=== PATIENT | female | born 1975 | race Caucasian/White ===

== ENCOUNTER → 2016-08-14 | Outpatient (CLI) | payer MEDICARE, OTHER ==
[~2016-08-14] VITALS: Ht 165.1 cm; Wt 57.2 kg
[~2016-08-14] MED LIST: CARI350 PO; CEPH500 PO; COLL30OI TP; DOXY100C PO; NITR100 PO; OXYB5 PO; PERCT10 PO
[2016-08-14 15:03] VITALS: BP 129/78
== END | disposition home or self-care (01) ==
LOC: HBOWC 13:07
PROVIDERS: ATTEND Emergency Medicine
DX: L89.612 Pressure ulcer of right heel, stage 2 (principal); L89.892 Pressure ulcer of other site, stage 2; G82.20 Paraplegia, unspecified
CPT/HCPCS: 97597

== ENCOUNTER → 2016-08-22 | Outpatient (CLI) | payer MEDICARE, OTHER ==
[~2016-08-22] MED LIST changes: -CEPH500 PO; -DOXY100C PO
== END | disposition home or self-care (01) ==
LOC: RADPV 13:26
PROVIDERS: ATTEND Emergency Medicine
DX: L89.619 Pressure ulcer of right heel, unspecified stage (principal); M85.88 Other specified disorders of bone density and structure, other site; Z87.81 Personal history of (healed) traumatic fracture

== ENCOUNTER → 2016-08-22 | Outpatient (CLI) | payer MEDICARE, OTHER ==
[2016-08-22 14:13] VITALS: BP 129/86
== END | disposition home or self-care (01) ==
LOC: HBOWC 13:32
PROVIDERS: ATTEND Emergency Medicine Undersea and Hyperbaric Medicine
DX: L89.92 Pressure ulcer of unspecified site, stage 2 (principal); L89.612 Pressure ulcer of right heel, stage 2; G82.20 Paraplegia, unspecified
CPT/HCPCS: 97597

== ENCOUNTER → 2016-08-22 | Outpatient (CLI) | payer MEDICARE, OTHER | END | disposition home or self-care (01) | LOC: RADPV 13:23 | PROVIDERS: ATTEND Physical Medicine & Rehabilitation | DX: S82.391D Other fracture of lower end of right tibia, subsequent encounter for closed fracture with routine healing (principal); S82.831D Other fracture of upper and lower end of right fibula, subsequent encounter for closed fracture with routine healing; M85.88 Other specified disorders of bone density and structure, other site; X58.XXXD Exposure to other specified factors, subsequent encounter ==

== ENCOUNTER → 2016-08-29 | Outpatient (CLI) | payer MEDICARE, OTHER ==
[2016-08-29 14:28] VITALS: BP 124/61
== END | disposition home or self-care (01) ==
LOC: HBOWC 14:13
PROVIDERS: ATTEND Emergency Medicine
DX: L89.613 Pressure ulcer of right heel, stage 3 (principal); G82.20 Paraplegia, unspecified
CPT/HCPCS: 97597

== ENCOUNTER → 2016-09-11 | Outpatient (CLI) | payer MEDICARE, OTHER ==
[~2016-09-11] MED LIST changes: +CEPH500 PO; +DOXY100C PO
[2016-09-11 11:24] VITALS: BP 130/70
== END | disposition home or self-care (01) ==
LOC: HBOWC 11:09
PROVIDERS: ATTEND Emergency Medicine
DX: L89.613 Pressure ulcer of right heel, stage 3 (principal); G82.20 Paraplegia, unspecified
CPT/HCPCS: 87070; 87205; 97597

== ENCOUNTER → 2016-09-25 | Outpatient (CLI) | payer MEDICARE, OTHER ==
[~2016-09-25] MED LIST changes: -CEPH500 PO
[2016-09-25 11:32] VITALS: BP 143/75
== END | disposition home or self-care (01) ==
LOC: HBOWC 11:19
PROVIDERS: ATTEND Emergency Medicine
DX: L89.613 Pressure ulcer of right heel, stage 3 (principal); G82.20 Paraplegia, unspecified; Z87.81 Personal history of (healed) traumatic fracture
CPT/HCPCS: 97597

== ENCOUNTER → 2016-10-09 | Outpatient (CLI) | payer MEDICARE, OTHER ==
[2016-10-09 15:10] VITALS: BP 135/73
== END | disposition home or self-care (01) ==
LOC: HBOWC 14:28
PROVIDERS: ATTEND Emergency Medicine
DX: L89.613 Pressure ulcer of right heel, stage 3 (principal); G82.20 Paraplegia, unspecified
CPT/HCPCS: 87070; 87205; 97597

== ENCOUNTER → 2016-10-18 | Outpatient (CLI) | payer MEDICARE, OTHER ==
[2016-10-18 11:19] VITALS: BP 131/77
== END | disposition home or self-care (01) ==
LOC: HBOWC 10:10
PROVIDERS: ATTEND Emergency Medicine
DX: L89.613 Pressure ulcer of right heel, stage 3 (principal); G82.20 Paraplegia, unspecified
CPT/HCPCS: 97597

== ENCOUNTER → 2016-11-01 | Outpatient (CLI) | payer MEDICARE, OTHER ==
[2016-11-01 11:23] VITALS: BP 115/69
== END | disposition home or self-care (01) ==
LOC: HBOWC 10:59
PROVIDERS: ATTEND Emergency Medicine
DX: L89.613 Pressure ulcer of right heel, stage 3 (principal); R60.9 Edema, unspecified; G82.20 Paraplegia, unspecified
CPT/HCPCS: 97597

== ENCOUNTER → 2016-11-15 | Outpatient (CLI) | payer MEDICARE, OTHER ==
[2016-11-15 10:56] VITALS: BP 138/89
== END | disposition home or self-care (01) ==
LOC: HBOWC 10:09
PROVIDERS: ATTEND Emergency Medicine
DX: L89.613 Pressure ulcer of right heel, stage 3 (principal); G82.20 Paraplegia, unspecified

== ENCOUNTER → 2016-11-30 | Outpatient (CLI) | payer MEDICARE, OTHER ==
[2016-11-30 14:33] VITALS: BP 143/74
== END | disposition home or self-care (01) ==
LOC: HBOWC 13:53
PROVIDERS: ATTEND Emergency Medicine Undersea and Hyperbaric Medicine
DX: L89.613 Pressure ulcer of right heel, stage 3 (principal); G82.20 Paraplegia, unspecified

== ENCOUNTER → 2016-12-17 | Outpatient (CLI) | payer MEDICARE, OTHER ==
[2016-12-17 14:03] VITALS: BP 138/87
== END | disposition home or self-care (01) ==
LOC: HBOWC 13:32
PROVIDERS: ATTEND Emergency Medicine
DX: L89.613 Pressure ulcer of right heel, stage 3 (principal); G82.20 Paraplegia, unspecified; I87.2 Venous insufficiency (chronic) (peripheral)